=== PATIENT | male | born 1990 | race Caucasian/White ===

== ENCOUNTER 2017-04-22 16:56 | Emergency (ER) | payer MEDICAID ==
[~2017-04-22] VITALS: Ht 172.7 cm; Wt 95.0 kg
[2017-04-22] MEDS ORDERED: METHYLPREDNISOLONE SOD SUCC 125 MG/2 ML VIAL IV STA (20:18)
[2017-04-22] MEDS ORDERED: KETOROLAC 30MG/ML VIAL IV STA (20:18)
[2017-04-22] MEDS ORDERED: PENICILLIN G BENZATHINE 1,200,000 UNITS/2ML SYR IM ONE (20:30)
[2017-04-22 20:46] LABS: BASOPHILS % 0.4 % (0.0-2.0); EOSINOPHILS % 0.8 % (0.0-5.0); HEMATOCRIT. 43.8 % (42.0-52.0); HEMOGLOBIN. 14.6 g/dL (14.0-18.0); LYMPHOCYTES % 13.9 % (20.0-50.0); MEAN CORPUSCULAR HEMOGLOBIN 29.3 pg (28.0-32.0); MEAN CORPUSCULAR VOLUME 87.7 fL (80.0-94.0); MEAN PLATELET VOLUME 8.9 fl (7.4-10.4); MONOCYTES % 8.3 % (2.0-8.0); NEUTROPHILS % 76.6 % (40.0-76.0); PLATELET 290 x1000/uL (130-400); RED BLOOD CELL COUNT 4.99 mill/uL (4.7-6.1)
[2017-04-22 20:53] LABS: CHLORIDE 100 mEq/L (98-107)
[2017-04-22 20:54] LABS: INR 1.1; PROTHROMBIN TIME 11.2 sec (9.4-11.6)
[2017-04-22 21:02] LABS: CARBON DIOXIDE 28 mEq/L (21-32)
[2017-04-22 23:12] LABS: CLARITY URINE CLEAR (CLEAR); COLOR URINE DARK YELLOW (YELLOW); GLUCOSE URINE NEGATIVE (NEGATIVE); KETONES URINE 4+ (NEGATIVE); LEUKOCYTE ESTERASE URINE NEGATIVE (NEGATIVE); NITRITE URINE NEGATIVE (NEGATIVE); OCCULT BLOOD URINE NEGATIVE (NEGATIVE); PROTEIN URINE TRACE (NEGATIVE)
[2017-04-23] MEDS ORDERED: HYDROCODONE/ACETAMINOPHEN 5/325MG TABLET PO STA (01:47)
[2017-04-23 02:01] VITALS: BP 105/62
== END 2017-04-23 03:00 | disposition home or self-care (01) ==
LOC: ER 17:37 → CANBEDREQ 04-23 06:07
DX: R13.10 Dysphagia, unspecified (principal); I10 Essential (primary) hypertension; R06.00 Dyspnea, unspecified
CPT/HCPCS: 36415; 70490; 80053; 81001; 85025; 85610; 87040; 87086; 96372; 96374; 96375; 99285; J0561; J1885; J2930; Z7610

== ENCOUNTER 2017-10-28 14:48 | Emergency (ER) | payer MEDICAID ==
[~2017-10-28] VITALS: Ht 175.3 cm; Wt 92.0 kg
[2017-10-28 15:20] VITALS: BP 125/70
== END 2017-10-28 16:49 | disposition left against medical advice (07) ==
LOC: ER 15:54
DX: M79.645 Pain in left finger(s) (principal)
CPT/HCPCS: 99281

== ENCOUNTER 2020-03-13 10:49 | Emergency (ER) | payer MEDICAID, OTHER ==
[~2020-03-13] VITALS: Ht 175.3 cm; Wt 91.0 kg
[2020-03-13 11:02] VITALS: BP 129/73
[2020-03-13] MEDS ORDERED: IBUPROFEN 400MG TABLET PO ONE (11:15)
== END 2020-03-13 11:37 | disposition home or self-care (01) ==
LOC: ER 10:49
DX: S29.012A Strain of muscle and tendon of back wall of thorax, initial encounter (principal); X50.0XXA Overexertion from strenuous movement or load, initial encounter; Y93.89 Activity, other specified; Y92.89 Other specified places as the place of occurrence of the external cause; Y99.0 Civilian activity done for income or pay; R03.0 Elevated blood-pressure reading, without diagnosis of hypertension
CPT/HCPCS: 99282